=== PATIENT | female | born 1965 | race Caucasian/White ===

== ENCOUNTER → 2017-02-13 | Outpatient (CLI) | payer OTHER ==
[~2017-02-13] MED LIST: AMIT10TA PO; ESTR1PAT10 TD; FURO-69 PO; OMEP40CA5 PO; POTA20PA8 PO; POTA20PI2 IV
--- NOTE | 2017-02-13 09:50 | KCIC ---
EXAM: Pelvis and left hip, 3 views. HISTORY: Pain. COMPARISON: None. FINDINGS: A frontal view of the pelvis and frontal and frog-leg views of the left hip are obtained. There is no fracture, dislocation or subluxation. The femoral heads are normal in configuration. There are metallic clips within overlying the right sacrum. There are pelvic phleboliths. IMPRESSION: No acute osseous finding. Electronically signed by: Rose Chery MD (02/13/2017 9:47 AM)
== END | disposition home or self-care (01) ==
LOC: KCIC 08:15
PROVIDERS: ATTEND Nurse Practitioner Family
DX: M25.552 Pain in left hip (principal); I87.8 Other specified disorders of veins
CPT/HCPCS: 73502

== ENCOUNTER → 2018-01-25 | Outpatient (CLI) | payer OTHER | END | disposition home or self-care (01) | LOC: KCIC MRI 08:41 | DX: M51.36 Other intervertebral disc degeneration, lumbar region (principal); R20.0 Anesthesia of skin | CPT/HCPCS: 72148 ==

== ENCOUNTER → 2018-02-11 | Outpatient (CLI) | payer OTHER | END | disposition home or self-care (01) | LOC: PNCL 07:33 | DX: M79.605 Pain in left leg (principal); M54.5 Low back pain; R42 Dizziness and giddiness; Z87.898 Personal history of other specified conditions | CPT/HCPCS: 99214 ==

== ENCOUNTER 2019-09-27 05:52 | Day surgery (SDC) | payer BC ==
[~2019-09-27 05:52] MED LIST changes: +NAPR220C4 PO; +OMEP40CA45 PO; -OMEP40CA5 PO; +POTA20PA21 PO; -POTA20PA8 PO
[2019-09-27] MEDS ORDERED: MORPHINE SULFATE 2 MG/ML VIAL. IV PRN (07:00)
[2019-09-27] MEDS ORDERED: SCOPOLAMINE 1.5MG PATCH. TD ONE (07:00)
[2019-09-27] MEDS ORDERED: PROCHLORPERAZINE 10 MG/2 ML VIAL. IV PRN (07:00)
[2019-09-27] MEDS ORDERED: HYDROmorphone 2 MG/ML VIAL IV PRN (07:00)
[2019-09-27] MEDS ORDERED: fentaNYL PF VIAL 100 MCG/2 ML VIAL IV PRN ×2 (07:00)
[2019-09-27] MEDS ORDERED: ONDANSETRON PF 4 MG/2 ML VIAL. IV PRN (07:00)
[2019-09-27] MEDS ORDERED: LIDOCAINE 1% PF 2 ML VIAL. ID PRN (07:00)
[2019-09-27] MEDS ORDERED: IV RINGERS,LACTATED 1000ML 1,000 ML IV SCH (07:00)
[2019-09-27] MEDS ORDERED: BUPIVACAINE-EPI 0.25%-1:200000 MPF 30 ML VIAL. ONE (07:02)
[2019-09-27] MEDS ORDERED: BUPIVACAINE MPF 0.25% 30 ML VIAL. ONE (07:02)
[2019-09-27] MEDS ORDERED: HYDR-3165 PO (07:13)
--- NOTE | 2019-09-27 07:14 | DISCH ---
DISCHARGE INSTRUCTIONS Condition on Discharge Condition on Discharge: Stable Activity After Discharge Activity Instructions for Disc: Other, see below (may do fine motor use with hands grasping to eat type right do hair etc. no hard grasping) Lifting Instructions after Dis: No heavy lifting, No pulling or pushing Diet after Discharge Diet after Discharge: Regular Wound Incision Care Wound/Incision Care: Do not change dressing (keep dressing intact and less soiled then may remove and placed light dressing over incision on palm) Contacting the [facility] after DC Call your doctor for: Concerns you may have Follow-Up Follow up with: Dr. Ireland 10 days YUVAL IRELAND MD Sep 27, 2019 07:14
[2019-09-27] MEDS ORDERED: fentaNYL PF VIAL 250 MCG/5 ML VIAL ONE (07:17)
[2019-09-27] MEDS ORDERED: HYDROcodone/APAP 7.5/325MG 1 TAB TABLET PO ONE (07:30)
[2019-09-27] MEDS ORDERED: ceFAZolin 2GM PREMIX 2 GM/50 ML BAG IV ONE (08:00)
[2019-09-27] MEDS ORDERED: SEVOFLURANE 61 TO 120 MINUTES. IH ONE (08:11)
[2019-09-27] MEDS ORDERED: ONDANSETRON PF 4 MG/2 ML VIAL. ONE (08:11)
[2019-09-27] MEDS ORDERED: DEXAMETHASONE SOD PHOS 4 MG/ML VIAL ONE (08:11)
[2019-09-27] MEDS ORDERED: LIDOCAINE 2% PF 5 ML VIAL. ONE (08:11)
[2019-09-27] MEDS ORDERED: PROPOFOL 20 ML IV ONE (08:11)
[2019-09-27 09:10] VITALS: BP 135/78
--- NOTE | 2019-09-27 10:05 | PDOC4 ---
Operative Note Operative Note Date of surgery: 09/27/2019 Preoperative diagnosis: Bilateral carpal tunnel syndrome Postoperative diagnosis: Same with moderate median nerve compression bilaterally Surgeon: Beka Assist: Corwin Martinez Anesthesia: Gen. 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 We had discussed p ossibility of operative treatment possibility of nerve or blood vessel damage recurrence infection incisional site pain medical or other anesthetic consultations among others she agrees to proceed with surgical evaluation and treatment. Operative text: Patient was identified procedure verified patient placed in the supine position on the operating table. After adequate amounts of general anesthesia were administered and timeout was performed patient procedure identified and verified the right upper extremity was prepped and draped in standard sterile fashion exsanguinated by Esmarch bandage tourniquet inflated to 250 mmHg a midline incision was made just distal to the distal palmar crease dissection carried out to the transverse carpal ligament which was divided longitudinally under direct vision sharply with a scalpel and proximally and distally under direct vision with tenotomy scissors. Full release was verified both with a freer elevator and visually proximally and distally median nerve was noted to have moderate compression closure accomplished with nylon suture and a vertical mattress fashion sterile soft dressings were applied. Attention was then turned to the left upper extremity which was prepped and draped in standard sterile fashion exsanguinated by Esmarch bandage tourniquet inflated to 250 mmHg a midline incision was made just distal to the distal palmar crease dissection carried out to the transverse carpal ligament which was divided longitudinally under direct vision sharply with a scalpel and proximally and distally under direct vision with tenotomy scissors. Full release was verified both with a freer elevator and visually proximally and distally median nerve was noted to have moderate compression closure accomplished with nylon suture and a vertical mattress fashion sterile soft dressings were applied. Patient was returned recovery room in stable condition having tolerated procedure well. Corwin Martinez nurse practitioner was present for the procedure and assisted in the positioning prepping draping retraction and dressing YUVAL FABIAN MD Sep 27, 2019 10:05
== END 2019-09-27 10:00 | disposition home or self-care (01) ==
LOC: SURG 05:52
PROVIDERS: ATTEND Orthopaedic Surgery
DX: G56.03 Carpal tunnel syndrome, bilateral upper limbs (principal); N80.9 Endometriosis, unspecified; Z98.890 Other specified postprocedural states; Z90.710 Acquired absence of both cervix and uterus; Z83.3 Family history of diabetes mellitus; Z82.49 Family history of ischemic heart disease and other diseases of the circulatory system; Z79.899 Other long term (current) drug therapy
CPT/HCPCS: A7015; J0696; J1100; J2001; J2405; J2704; J3010; J3490